=== PATIENT | female | born 1940 | race Caucasian/White ===

== ENCOUNTER 2016-05-03 11:10 | Inpatient (IN) | payer OTHER ==
[~2016-05-03] VITALS: Ht 162.5 cm; Wt 81.6 kg
--- NOTE | ~2016-05-03 | PR ---
[place], [place] PROGRESS NOTE NAME: RAMÍREZ KATZ V UNIT #: [id number] ROOM: 311 DOCTOR: BISHOP MEI BIRTHDATE: [birth year] DOS: 05/06/2016 SUMMARY OF VISIT: The patient was assessed in her room. She did not wake up during my assessment. Nurses are noted that she is quite sedated last night, but had a restless sleep, would not take her p.m. medications for them and she was somewhat sedated and groggy most of yesterday. They do not know if she is getting her days and nights messed up, very poor appetite, most likely could be such she is not feeling well or because of the sedation. Also, noted that she is rhonchorous. We are going to ask the hospitalist round on her and just monitor her from organic standpoint. MENTAL STATUS: She is alert to my touch and her name only, cannot tell about her orientation, if she is having auditory or visual hallucinations, delusions or paranoia. No behaviors per nursing, but confused sleep and poor appetite. PLAN: I will keep the Depakote where it is at. I am going to decrease the Klonopin from 1 mg 3 times a day to 0.5 mg 3 times a day and see if this helps her to become a little bit more alert during the day, may eventually even wean this completely to off. We will follow up on and monitor her lungs. We will try to get her up and moving around as much as possible, keep her awake during the day, so that her body and her mind is exhausted for the evening. We will try to engage in individual and turner milieu therapy, but in the meantime, I want to make sure that she is not having any kind of brewing pneumonia. Her x-ray from the other day shows no consolidation or atelectasis in either lungs. NEEMA MEI CNP CM:PNTRANS [id number] BISHOP MEI 05/06/16 1218 interface
--- NOTE | ~2016-05-03 | PR ---
[place], [place] PROGRESS NOTE NAME: RAMÍREZ KATZ V UNIT #: [id number] ROOM: 311 DOCTOR: BISHOP MEI BIRTHDATE: [birth year] DOS: 05/05/2016 SUMMARY OF VISIT: The patient was assessed in the quiet room across from the nurses' station. She was nonverbal with me the entire time. Her valproic acid level came back in the therapeutic range. She does have a moist cough. I have asked the hospitalist to follow up and address. MENTAL STATUS: She was alert, responded to my touch and when I said her name. Other than that, I cannot tell if she is oriented to person, place, or time. PLAN: We did start her back on her medications. Her Depakote came back in the therapeutic range. No side effects of the medications at all. I am going to address this cough before attempting to change any meds. I want to make sure that she does not have any type of aspiration or pneumonia before adjusting meds. NEEMA MEI CNP CM:PNTRANS [id number] BISHOP MEI 05/05/16 0942 interface
--- NOTE | ~2016-05-03 | PR ---
[place], [place] PROGRESS NOTE NAME: RAMÍREZ KATZ V UNIT #: [id number] ROOM: 311 DOCTOR: PADILLA SALGUERO MD BIRTHDATE: [birth year] DOS: 05/07/2016 CHIEF COMPLAINT: "The patient did not verbalize anything." SUMMARY OF THE VISIT: The patient was attempted to be interviewed as she rested in a Lola chair in the dining area. She looked rather sedate and somnolent. She did make eye contact, but did not attempt to speak. Nurses report that she has a history of very frequent UTIs often more than in the year and that when she gets a UTI, it changes her mental status greatly. Additionally, the patient is on several sedating medicines. MENTAL STATUS: My mental status exam is limited due to her lack or inability to cooperate and verbalize. She made eye contact. There was no overt agitation and no overt signs of psychosis. PLAN: I will recheck a UA just to make certain that she is adequately been treated vitamin D level was low and I will discontinue her daily, vitamin D in lieu of vitamin D 50,000 international units weekly. For now, I will discontinue Depakote and Klonopin and see if she clears mentally. We will monitor and support. Increase her Trintellix to 20 mg a day in an attempt to combat depressive symptomatology and improve focus, engage in individual and turner milieu activity, returning to at least a restrictive environment then when stable. PADILLA SALGUERO MD CM:PNTRANS [id number] PADILLA SALGUERO MD 05/07/16 1024 interface
--- NOTE | ~2016-05-03 | PR ---
[place], [place] PROGRESS [id number] UNIT #: [id number] ROOM: 311 DOCTOR: BISHOP MEI BIRTHDATE: [birth year] DOS: 05/04/2016 HISTORY OF PRESENT ILLNESS: This is a 76-year-old female from [facility] _[facility] one of our nursing facilities, who was admitted for altered mental status. The patient had become increasingly confused, hallucinating, crying, difficult to redirect, combative at times. This is very consistent with her history of recurrent UTIs; however, all her UAs have been coming back negative. The patient had been at [facility] recently for hip and back pain, and during the hospitalization, all her psych meds had been discontinued, then sent to a SNF for rehab where she was put on different psychiatric meds than before and this is when the behavior started. She is having hallucinations, yelling, difficult to redirect, confusions, talking to unforeseen others, yelling all day and night, unable to calm down. PAST MEDICAL HISTORY: Chronic pain, decubitus ulcers, GERD, hypertension, hypercalcemia, hypothyroidism, neuropathy, recurrent UTIs, seasonal allergies, water retention. PSYCHIATRIC DIAGNOSIS: Brief psychotic disorder; major depression, recurrent. MENTAL STATUS: The patient is alert, but not oriented to person, place, or time at this time. She does still yell out, mumble for her mother, very fidgety, not her normal baseline. Sleep comes and goes. She does have a productive cough and is very confused. PLAN: Dr. Segura started her back on some of her other medications. In particular, we currently have her on Depakote 250 mg b.i.d., 500 at bedtime, Trintellix 10 mg at bedtime, and Klonopin 1 mg t.i.d. I will get a valproic acid level tomorrow. Let me see how she does over the next 24 hours and go from there. NEEMA MEI CNP CM:PNTRANS [id number] BISHOP MEI 05/04/16 0835 interface
[2016-05-03] MEDS ORDERED: BENZTROPINE ME0.5 MG PO (12:27)
[2016-05-03] MEDS ORDERED: CALCIUM 600600 M2 PO (12:28)
[2016-05-03] MEDS ORDERED: LASIX20 MG PO (12:29)
[2016-05-03] MEDS ORDERED: NEURONTIN100 MG PO (12:31)
[2016-05-03] MEDS ORDERED: KLOR-CON 1010 ME1 PO (12:32)
[2016-05-03] MEDS ORDERED: LEVO-T50 MCG PO (12:33)
[2016-05-03] MEDS ORDERED: LORADAMED10 MG PO (12:34)
[2016-05-03] MEDS ORDERED: METFORMIN1000 MG PO (12:34)
[2016-05-03] MEDS ORDERED: LOPRESSOR25 MG PO (12:42)
[2016-05-03] MEDS ORDERED: OMEPRAZOLE40 MG PO (12:43)
[2016-05-03] MEDS ORDERED: RANITIDINE 7575 MG PO (12:48)
[2016-05-03] MEDS ORDERED: TRIMETHOPRIM100 MG PO (12:49)
[2016-05-03] MEDS ORDERED: OXYCODONE AND A1 TA4 PO (12:51)
[2016-05-03] MEDS ORDERED: TYLENOL650 MG PO (12:52)
[2016-05-03] MEDS ORDERED: PROZAC40 M1 PO (12:54)
[2016-05-03] MEDS ORDERED: BELLADONNA ALK PO (12:56)
[2016-05-03] MEDS ORDERED: LISINOPRIL10 M1 PO (12:58)
[2016-05-03] MEDS ORDERED: BUSPAR15 MG PO (12:59)
[2016-05-03] MEDS ORDERED: CLONAZEPAM1 MG PO (12:59)
[2016-05-03] MEDS ORDERED: RISPERDAL1 M1 PO (13:00)
[2016-05-03 13:54] VITALS: BP 125/57
[2016-05-03 14:40] VITALS: BP 125/57
[2016-05-03 16:15] LABS: BASO % 0.5 % (0.0-1.0); EOS # 0.3 10*3/uL (0.0-0.4); EOS % 4.7 % (1.0-4.0); HEMATOCRIT 42.5 % (37.0-47.0); HEMOGLOBIN 13.9 g/dl (12.0-16.0); LYMPH # 2.2 10*3/uL (1.3-4.4); LYMPH % 36.1 % (27.0-41.0); MEAN CELL VOLUME 83.8 fl (81.0-99.0); MEAN CORPUSCULAR HGB 27.4 pg (27.0-31.0); MEAN CORPUSCULAR HGB CONC 32.7 g/dl (33.0-37.0); MEAN PLATELET VOLUME 9.6 fl (9.6-12.3); MONO # 0.7 10*3/uL (0.1-1.0); MONO % 11.9 % (3.0-9.0); NEUT # 2.8 10*3/uL (2.3-7.9); NEUT % 46.5 % (47.0-73.0); PLATELET COUNT AUTOMATED 403 10*3/uL (130-400); RED BLOOD COUNT 5.07 10*6/uL (4.10-5.10); RED CELL DISTRI WIDTH 15.6 % (0-14.5)
[2016-05-03 16:38] LABS: HEMOGLOBIN A1c 5.9 % (4.8-5.6)
[2016-05-03 16:43] LABS: CHOLESTEROL 178 mg/dL (<200); HDL CHOLESTEROL 57 mg/dl (40-60); LDL CHOLESTEROL 102 mg/dL (9-159); TRIGLYCERIDES 94 mg/dl (<150); VLDL CHOLESTEROL 19 mg/dL (6-40)
[2016-05-03 16:45] LABS: ALBUMIN 3.4 gm/dl (3.1-4.5); ALKALINE PHOSPHATASE 74 U/L (45-117); BILIRUBIN, TOTAL 0.4 mg/dl (0.2-1.0); BUN 15 mg/dl (7-24); CARBON DIOXIDE 29 mmol/L (21-32); CHLORIDE 101 mmol/L (98-107); EST GLOM FILT AFRICAN AMERICAN > 60 ml/min; GLUCOSE 103 mg/dL (65-99); SGOT/AST 27 IU/L (3-35); SGPT/ALT 33 U/L (12-78); SODIUM 141 mmol/L (136-145); TOTAL PROTEIN 6.6 gm/dL (6.4-8.2)
[2016-05-03 16:52] LABS: FOLIC ACID 6.73 ng/mL (>5.38); THYROID STIM HORMONE (HS) 0.905 uIU/ml (0.358-4.75)
[2016-05-03 18:00] LABS: BILIRUBIN NEGATIVE (NEGATIVE); BLOOD NEGATIVE (NEGATIVE); CLARITY SL CLOUDY (CLEAR); COLOR YELLOW (YELLOW); GLUCOSE NEGATIVE (NEGATIVE); KETONE NEGATIVE (NEGATIVE); LEUKO ESTERASE 1+ (NEGATIVE); NITRITE NEGATIVE (NEGATIVE); PH 5.5 (5.0-9.0); PROTEIN NEGATIVE (NEGATIVE); UROBILINOGEN 0.2 E.U./dl (0.2-1.0)
[2016-05-03 18:08] LABS: BACTERIA 3+; RBC 0-2 rbc/hpf (0-2); URINE REFLEX COMMENT YES (NO)
[2016-05-03 20:29] VITALS: BP 119/66
[2016-05-04 08:42] VITALS: BP 139/76
[2016-05-04 20:32] VITALS: BP 146/82
[2016-05-05 08:06] VITALS: BP 133/108
[2016-05-05 11:48] VITALS: BP 130/82
[2016-05-05 20:03] VITALS: BP 124/82
[2016-05-06 08:17] VITALS: BP 129/64
[2016-05-06 12:03] VITALS: BP 135/68
[2016-05-06 20:10] VITALS: BP 118/52
[2016-05-07 06:27] LABS: BASO % 0.4 % (0.0-1.0); EOS # 0.1 10*3/uL (0.0-0.4); EOS % 0.8 % (1.0-4.0); HEMATOCRIT 43.5 % (37.0-47.0); HEMOGLOBIN 14.3 g/dl (12.0-16.0); LYMPH # 2.4 10*3/uL (1.3-4.4); LYMPH % 29.5 % (27.0-41.0); MEAN CELL VOLUME 82.2 fl (81.0-99.0); MEAN CORPUSCULAR HGB CONC 32.9 g/dl (33.0-37.0); MEAN PLATELET VOLUME 9.4 fl (9.6-12.3); MONO # 0.9 10*3/uL (0.1-1.0); MONO % 10.9 % (3.0-9.0); NEUT # 4.6 10*3/uL (2.3-7.9); PLATELET COUNT AUTOMATED 401 10*3/uL (130-400); RED BLOOD COUNT 5.29 10*6/uL (4.10-5.10); RED CELL DISTRI WIDTH 15.3 % (0-14.5)
[2016-05-07 06:58] LABS: ALBUMIN 3.3 gm/dl (3.1-4.5); BILIRUBIN, TOTAL 0.4 mg/dl (0.2-1.0); BUN 20 mg/dl (7-24); CARBON DIOXIDE 26 mmol/L (21-32); CHLORIDE 106 mmol/L (98-107); EST GLOM FILT AFRICAN AMERICAN > 60 ml/min; GLUCOSE 123 mg/dL (65-99); POTASSIUM 3.6 mmol/L (3.5-5.1); SGOT/AST 18 IU/L (3-35); SGPT/ALT 25 U/L (12-78); SODIUM 145 mmol/L (136-145); TOTAL PROTEIN 6.7 gm/dL (6.4-8.2)
[2016-05-07 06:59] LABS: ALKALINE PHOSPHATASE 63 U/L (45-117)
[2016-05-07 08:03] VITALS: BP 138/76
[2016-05-07 14:07] LABS: BUN 21 mg/dl (7-24); CARBON DIOXIDE 27 mmol/L (21-32); CHLORIDE 108 mmol/L (98-107); EST GLOM FILT AFRICAN AMERICAN > 60 ml/min; GLUCOSE 105 mg/dL (65-99); POTASSIUM 3.5 mmol/L (3.5-5.1); SODIUM 147 mmol/L (136-145)
[2016-05-07 14:09] LABS: TROPONIN I 0.179 ng/ml (<0.045)
[2016-05-07 15:23] LABS: BILIRUBIN NEGATIVE (NEGATIVE); BLOOD NEGATIVE (NEGATIVE); CLARITY CLEAR (CLEAR); COLOR YELLOW (YELLOW); GLUCOSE NEGATIVE (NEGATIVE); KETONE TRACE (NEGATIVE); LEUKO ESTERASE NEGATIVE (NEGATIVE); NITRITE NEGATIVE (NEGATIVE); PH 5.5 (5.0-9.0); PROTEIN NEGATIVE (NEGATIVE); UROBILINOGEN 0.2 E.U./dl (0.2-1.0)
[2016-05-07 15:30] LABS: MUCOUS 3+; URINE REFLEX COMMENT NO (NO)
[2016-05-07 20:00] VITALS: BP 160/72
[2016-05-08 07:32] LABS: BUN 19 mg/dl (7-24); CARBON DIOXIDE 26 mmol/L (21-32); CHLORIDE 109 mmol/L (98-107); EST GLOM FILT AFRICAN AMERICAN > 60 ml/min; GLUCOSE 158 mg/dL (65-99); POTASSIUM 3.4 mmol/L (3.5-5.1); SODIUM 147 mmol/L (136-145)
[2016-05-08 08:12] VITALS: BP 148/86
[2016-05-08 20:40] VITALS: BP 160/100
[2016-05-08 22:33] VITALS: BP 148/90
[2016-05-09 00:21] VITALS: BP 136/68
[2016-05-09 06:20] VITALS: BP 170/68
[2016-05-09 08:14] VITALS: BP 164/89
[2016-05-09] MEDS ORDERED: BRIN20TA PO (09:52)
== END 2016-05-09 10:04 | disposition short-term general hospital (02) | DRG 885 ==
LOC: 3N 11:10
PROVIDERS: Internal Medicine; Nurse Practitioner Adult Health; Psychiatry & Neurology Psychiatry; Student in an Organized Health Care Education/Training Program
DX: F23 Brief psychotic disorder (principal); F33.2 Major depressive disorder, recurrent severe without psychotic features; N39.0 Urinary tract infection, site not specified; G62.9 Polyneuropathy, unspecified; E11.40 Type 2 diabetes mellitus with diabetic neuropathy, unspecified; I10 Essential (primary) hypertension; K21.9 Gastro-esophageal reflux disease without esophagitis; R60.9 Edema, unspecified; J30.2 Other seasonal allergic rhinitis; G89.29 Other chronic pain; E03.8 Other specified hypothyroidism; Z84.89 Family history of other specified conditions; Z88.2 Allergy status to sulfonamides; Z79.84 Long term (current) use of oral hypoglycemic drugs; Z79.1 Long term (current) use of non-steroidal anti-inflammatories (NSAID); Z79.899 Other long term (current) drug therapy